=== PATIENT | male | born 1950 | race Asian ===

== ENCOUNTER 2017-05-07 10:33 | Emergency (ER) | payer OTHER ==
[~2017-05-07] VITALS: Ht 170.2 cm; Wt 65.5 kg
[2017-05-07] MEDS ORDERED: HYDR25TA PO (10:44)
[2017-05-07] MEDS ORDERED: ASPI81 PO (10:44)
[2017-05-07] MEDS ORDERED: METF500T4 PO (10:44)
[2017-05-07] MEDS ORDERED: LISI-661 PO (10:44)
[2017-05-07] MEDS ORDERED: IOVERSOL 350 MG/ML 100 ML VIAL ONE (10:46)
[2017-05-07 10:59] LABS: BASOPHILS % (AUTO) 0.4 % (0.0-2.0); EOSINOPHILS % (AUTO) 7.4 % (1.0-6.0); HEMATOCRIT 40.9 % (41-53); HEMOGLOBIN 14.4 g/dL (13.5-17.5); LYMPHOCYTES # (AUTO) 2.1 K/uL (1.0-4.8); LYMPHOCYTES % (AUTO) 32.2 % (22.0-44.0); MEAN CORPUSCULAR HEMOGLOBIN 31.2 pg (26.0-34.0); MEAN CORPUSCULAR HGB CONC 35.1 G/dL (31.0-37.0); MEAN CORPUSCULAR VOLUME 89 fL (80-100); MONOCYTES # (AUTO) 0.9 K/uL (0.1-1.0); MONOCYTES % (AUTO) 13.3 % (2.0-9.0); NEUTROPHILS % (AUTO) 46.7 % (40.0-70.0); PLATELET COUNT (AUTO) 236 K/uL (150-450); RED CELL DISTRIBUTION WIDTH 13.3 % (11.5-14.5)
[2017-05-07 11:16] LABS: ANION GAP 7 mmol/L (8-16); CALCIUM, TOTAL 9.4 mg/dL (8.8-10.5); CARBON DIOXIDE 28 mmol/L (22-29); CHLORIDE 102 mmol/L (98-107); CREATININE 1.25 mg/dL (0.60-1.30); GLOMERULAR FILTR. RATE CALC 58 mL/min (>60); GLUCOSE,RANDOM 184 mg/dL (70-110); POTASSIUM 4.4 mmol/L (3.5-5.1); SODIUM SERUM 137 mmol/L (136-145); UREA NITROGEN, BLOOD 17 mg/dL (7-18)
[2017-05-07] MEDS ORDERED: HYDR10TA31 PO (11:20)
[2017-05-07] MEDS ORDERED: PROZ10 PO (11:20)
[2017-05-07] MEDS ORDERED: SIMV-261 PO (11:20)
[2017-05-07] MEDS ORDERED: GLIP5 PO (11:20)
[2017-05-07 11:39] LABS: ALANINE AMINOTRANSFERASE 35 U/L (12-78); ALBUMIN 3.9 g/dL (3.4-5.0); ALKALINE PHOSPHATASE 67 U/L (46-116); ASPARTATE AMINOTRANSFERASE 20 U/L (15-37); BILIRUBIN,TOTAL 0.5 mg/dL (0.1-1.0); CREATINE KINASE MB 2.1 ng/mL (0-5); CREATINE KINASE, TOTAL 217 U/L (39-308); TOTAL PROTEIN, SERUM 7.9 g/dL (6.4-8.2)
[2017-05-07] MEDS ORDERED: ASPIRIN 325 MG TABLET PO ONE (12:15)
[2017-05-07] MEDS ORDERED: LABETALOL HCL 5 MG/ML 20 ML VIAL IVP ONE (12:15)
[2017-05-07 12:40] VITALS: BP 196/73
== END 2017-05-07 13:27 | disposition short-term general hospital (02) ==
LOC: EMS 10:37
DX: I63.9 Cerebral infarction, unspecified (principal); I10 Essential (primary) hypertension; E11.65 Type 2 diabetes mellitus with hyperglycemia; Z79.82 Long term (current) use of aspirin; Z79.4 Long term (current) use of insulin; Z79.899 Other long term (current) drug therapy
CPT/HCPCS: 36415; 70450; 70496; 71045; 80053; 82550; 82553; 84484; 85025; 85610; 85730; 93005; 96374; 99291; J3490; Q9967